=== PATIENT | female | born 1930 | race Caucasian/White ===

== ENCOUNTER → 2016-12-30 | Outpatient (CLI) | payer MEDICARE | LOC: RAD 12:26 | PROVIDERS: ATTEND Family Medicine | DX: R09.89 Other specified symptoms and signs involving the circulatory and respiratory systems (principal) | CPT/HCPCS: 93880 ==

== ENCOUNTER 2017-02-16 09:44 | Emergency (ER) | payer MEDICARE ==
[~2017-02-16] VITALS: Ht 160 cm; Wt 80.0 kg
[~2017-02-16 09:44] MED LIST: AMOX875T2 PO; ATOR40TA59 PO; LEVO100T7 PO; SITA1TBM7 PO; WARF1TAB6 PO; WARF3TAB6 PO
--- OUTSIDE RECORDS SUMMARY | 2017-02-16 09:49 | XMS REPORT | Continuity of Care Document ---
Author Author [facility] Address Unknown Phone Unavailable Care Team Providers Care Golf Sales Associate Name Role Phone Abraham Feng MD PCP [phone] Insurance Providers Payer Name Policy Number Subscriber Name Relationship Medicare A And B [id number] Nikole Vergara 19 Self / Same As Patient Advance Directives Directive Response Recorded Date/Time Advanced Directives Unknown 08/21/16 5:43pm Chief Complaint and Reason for Visit Chief Complaint Laceration Reason for Visit Laceration Problems Active Problems Medical Problem Onset Date Status Laceration Unknown Acute Medications Current Home Medications Medication Dose Units Route Directions Days/Qty Instructions Start Date Levothyroxine Sodium 100 Mcg 100 Mg ORAL Daily 30 08/21/16 Atorvastatin Calcium 40 Mg 40 Mg ORAL Daily 90 08/21/16 Sitagliptin Phos/Metformin Hcl 1 Each 1,000 Mg ORAL As Directed 60 09/24 Warfarin Sodium 3 Mg 3 Mg ORAL Daily 90 08/21/16 Warfarin Sodium 1 Mg 1 Mg ORAL Daily 90 08/21/16 Amoxicillin 875 Mg 875 Mg ORAL Twice A Day 10 08/21/16 Social History Query Response Start Date Stop Date Smoking Status Never smoker Hospital Discharge Instructions No hospital discharge instructions. Plan of Care Discharge Date 08/21/16 7:39pm Disposition 01 HOME OR SELF-CARE Condition at Discharge Stable Instructions/Education Provided Suture Care (ED) Finger Laceration (ED) Prescriptions See Medication Section Referrals Abraham Feng MD - Additional Instructions/Education rremove sutures in 7 days Some of your test results may not be complete prior to your leaving the Emergency Department. The Emergency Department is not authorized to give test results over the phone. Please contact the doctor's office listed in this packet of information for your final results. Follow up with your primary care physician or return to the Emergency Department for worsening or worrisome symptoms. * Emergency Department phone number: [phone], x [phone] MEDICAL RECORD If you need copies of your X-rays, call [phone]. If you need copies of your medical record, including lab results, a signed authorization for release of records will be required. A telephone call for release of Health Information is not allowed. BILLING Billing can sometimes be confusing and frustrating. To help avoid confusion in the future, please take a moment to acquaint yourself with the billing parties for services. SERVICE BILLING [employer]AT Emergency Room Services [facility] Physician Services [facility] X-rays [facility] Patients will receive bills for services from the appropriate provider. If you have any questions about your [facility] bill, our staff will be happy to assist you. Please call [phone], and ask for the billing department. THANK YOU for choosing [facility] as your emergency care provider! Care Plan and Goals ~~Discharge Care Plan~~ Problem: Laceration repaired Goal: Wound is closed with edges lined up, and will heal without redness, drainage or signs of infection. Instructions: Keep wound clean and dry. Apply antibiotic ointment as directed. Follow physician discharge instructions. Keep wound covered if working in an unclean environment. Wear gloves if working with food in a work environment. Functional Status No functional status results. Allergies, Adverse Reactions, Alerts No known allergies. Immunizations Name Given Type Status Tdap 08/21/16 Administered Completed Vital Signs Acute Vital Signs Vital Response Date/Time Temperature (Fahrenheit) 97.7 08/21/2016 7:38pm Pulse 88 bpm 08/21/2016 7:38pm Respirations 20 08/21/2016 7:38pm Height 5 ft 3 in Weight 174 lb Body Mass Index 30.0 kg/m^2 Results No known relevant diagnostic tests, laboratory data and/or discharge summary. Procedures No known history of procedures. Encounters Encounter Location Arrival/Admit Date Discharge/Depart Date Attending Provider Registered Emergency Room [facility] 08/21/16 5:24pm GABRIEL CHILDERS MD Recent Diagnosis
--- NOTE | 2017-02-16 10:30 | NUR ---
This nurse asks patient if she has a ride home. She states that she tried calling her son but he hasn't answered. Doctor says if patient is comfortable she may go home as long as she doesn't live too far away. Patient requesting to drive home and states daugther will be there to help her. This nurse assists patient to care via wheelchair. Care relinquished.
[2017-02-16] MEDS ORDERED: MULT-1034 PO (16:48)
[2017-02-16] MEDS ORDERED: LSNP20T PO (16:48)
[2017-02-16] MEDS ORDERED: VITA-189 PO (16:48)
[2017-02-16 16:50] VITALS: BP 129/58
== END 2017-02-16 10:30 | disposition home or self-care (01) ==
LOC: ED 09:51
DX: S00.81XA Abrasion of other part of head, initial encounter (principal); W10.2XXA Fall (on)(from) incline, initial encounter; Y93.89 Activity, other specified; Y92.481 Parking lot as the place of occurrence of the external cause
CPT/HCPCS: 99281; 99282